=== PATIENT | male | born 1980 | race Caucasian/White ===

== ENCOUNTER 2017-02-22 09:06 | Emergency (ER) | payer OTHER, MEDICAID ==
[2017-02-22] MEDS ORDERED: Sodium Chloride 0.9% 1,000 ML IV ONE (09:39)
--- NOTE | 2017-02-22 09:51 | EDM.PDOC ---
[id number] 4d headache Time Seen by Provider: 02/22/17 09:17 - History of Present Illness INITIAL COMMENTS - FREE TEXT/NARRATIVE: HISTORY AND PHYSICAL: History of present illness: This is a 36-year-old male presenting to the emergency department for chief complaint of a headache and passing out. As per the patient, he tells me while he was at work yesterday he had an episode of passing out after experiencing a headache. He tells me that he hit the floor and hit his head. He tells me he'll he was helped up by his coworkers. He says since then he has been experiencing an ongoing headache. He denies any nausea, numbness or tingling, any chest pain or shortness of breath. He denies any history of headaches or migraines, denies any cardiopulmonary history. Review of systems: As per history of present illness and below otherwise all systems reviewed and negative. Past medical history: As per history of present illness and as reviewed below otherwise noncontributory. Surgical history: As per history of present illness and as reviewed below otherwise noncontributory. Social history: No reported history of drug or alcohol abuse. Family history: As per history of present illness and as reviewed below otherwise noncontributory. Physical exam: HEENT: Atraumatic, normocephalic, pupils reactive, negative for conjunctival pallor or scleral icterus, mucous membranes moist, throat clear, neck supple, nontender, trachea midline. Lungs: Clear to auscultation, breath sounds equal bilaterally, chest nontender. Heart: S1S2, regular, negative for clicks, rubs, or JVD. Abdomen: Soft, nondistended, nontender. Negative for masses or hepatosplenomegaly. Negative for costovertebral tenderness. Pelvis: Stable nontender. Genitourinary: Deferred. Rectal: Deferred. Extremities: Atraumatic, negative for cords or calf pain. Neurovascular unremarkable. Neuro: Awake, alert, oriented. Cranial nerves II through XII unremarkable. Cerebellum unremarkable. Motor and sensory unremarkable throughout. Exam nonfocal. Diagnostics: CBC CMP and PT/INR EKG chest x-ray CT scan of the head no contrast Therapeutics: IV normal saline bolus IV 10mg Compazine IV 25mg Benadryl IV 30mg Ketorolac Impression: Vasovagal Syncope Migraine headache Plan: Discharge home. Follow up with PCP. Headache Pain Score (Numeric/FACES): 10 - Related Data Allergies Allergy/AdvReac Type Severity Reaction Status Date / Time penicillin G Allergy Rash Verified 02/22/17 09:12 Home Meds: Home Meds Esomeprazole Magnesium [Nexium] 1 tab PO DAILY 02/22/17 [History] Ibuprofen [IMW: Ibuprofen] 1 tab PO DAILY 02/22/17 [History] Past Medical History - Past Health History Medical/Surgical History: Denies Medical/Surgical History Gastrointestinal History: Reports: GERD Musculoskeletal History: Reports: Osteoarthritis Other Musculoskeletal History: Knee Arthritis - Infectious Disease History Infectious Disease History: Reports: Chicken Pox - Past Surgical History GI Surgical History: Reports: Appendectomy Social & Family History - Family History Family Medical History: Noncontributory - Tobacco Use Smoking Status *Q: Current Every Day Smoker Years of Tobacco use: 6 Packs/Tins Daily: 2 Used Tobacco, but Quit: No Second Hand Smoke Exposure: Yes - Caffeine Use Caffeine Use: Reports: Soda - Recreational Drug Use Recreational Drug Use: No ED ROS GENERAL - Review of Systems Review Of Systems: See Below (See dictation) - Physical Exam Exam: See Below (See dictation) Course - Vital Signs Text/Narrative:: The patient presented with a chief complaint of syncope last night. A syncope workup was completed indicating no acute abnormalities with a CT scan of the head, EKG CBC CMP COMPLETED. Patient was given a migraine cocktail for his ongoing migraine which helped take the pain down. He was advised to follow-up with his primary care provider. He was advised to return to seek further medical attention if he was to experience any further episodes of passing out or any persistent headache. Patient agreed to the plan. Last Recorded V/S: Last Vital Signs Temp 36.2 C 02/22/17 09:14 Pulse 67 02/22/17 11:11 Resp 14 02/22/17 11:11 BP 124/57 L 02/22/17 11:11 Pulse Ox 96 02/22/17 11:11 - Orders/Labs/Meds Orders: Active Orders 24 hr Category Date Time Status EKG Documentation Completion [RC] STAT Care 02/22/17 09:38 Active Labs: Laboratory Tests 02/22/17 02/22/17 02/22/17 Range/Units 09:44 09:44 09:44 WBC 7.12 (4.0-11.0) K/uL RBC 4.76 (4.50-5.90) M/uL Hgb 15.1 (13.0-17.0) g/dL Hct 41.9 (38.0-50.0) % MCV 88.0 (80.0-98.0) fL MCH 31.7 (27.0-32.0) pg MCHC 36.0 (31.0-37.0) g/dL RDW Std Deviation 39.9 (28.0-62.0) fl RDW Coeff of [place] 13 (11.0-15.0) % Plt Count 273 (150-400) K/uL MPV 9.30 (7.40-12.00) fL Neut % (Auto) 54.6 (48.0-80.0) % Lymph % (Auto) 30.3 (16.0-40.0) % Johnston % (Auto) 10.3 (0.0-15.0) % Eos % (Auto) 4.5 (0.0-7.0) % Baso % (Auto) 0.3 (0.0-1.5) % Neut # (Auto) 3.9 (1.4-5.7) K/uL Lymph # (Auto) 2.2 (0.6-2.4) K/uL Johnston # (Auto) 0.7 (0.0-0.8) K/uL Eos # (Auto) 0.3 (0.0-0.7) K/uL Baso # (Auto) 0.0 (0.0-0.1) K/uL Nucleated RBC % 0.0 /100WBC Nucleated RBCs # 0 K/uL INR 0.98 (0.86-1.11) Sodium 140 (136-146) mmol/L Potassium 3.7 (3.5-5.1) mmol/L Chloride 107 (98-110) mmol/L Carbon Dioxide 24 (21-31) mmol/L BUN 10 (6.0-23.0) mg/dL Creatinine 0.8 (0.6-1.5) mg/dL Est Cr Clr Drug Dosing 128.88 mL/min Estimated GFR (MDRD) > 60.0 ml/min Glucose 98 (60-110) mg/dL Calcium 9.4 (8.8-10.8) mg/dL Total Bilirubin 0.9 (0.1-1.5) mg/dL AST 19 (5-40) IU/L ALT 33 (8-54) IU/L Alkaline Phosphatase 94 (40-150) Creatine Kinase (9-236) IU/L Troponin I (0.0-0.29) NG/ML Total Protein 7.6 (6.0-8.0) g/dL Albumin 4.2 (3.5-5.0) g/dL Globulin 3.4 (2.0-3.5) g/dL Albumin/Globulin Ratio 1.2 L (1.3-2.8) 02/22/17 02/22/17 Range/Units 09:44 09:49 WBC (4.0-11.0) K/uL RBC (4.50-5.90) M/uL Hgb (13.0-17.0) g/dL Hct (38.0-50.0) % MCV (80.0-98.0) fL MCH (27.0-32.0) pg MCHC (31.0-37.0) g/dL RDW Std Deviation (28.0-62.0) fl RDW Coeff of [place] (11.0-15.0) % Plt Count (150-400) K/uL MPV (7.40-12.00) fL Neut % (Auto) (48.0-80.0) % Lymph % (Auto) (16.0-40.0) % Johnston % (Auto) (0.0-15.0) % Eos % (Auto) (0.0-7.0) % Baso % (Auto) (0.0-1.5) % Neut # (Auto) (1.4-5.7) K/uL Lymph # (Auto) (0.6-2.4) K/uL Johnston # (Auto) (0.0-0.8) K/uL Eos # (Auto) (0.0-0.7) K/uL Baso # (Auto) (0.0-0.1) K/uL Nucleated RBC % /100WBC Nucleated RBCs # K/uL INR (0.86-1.11) Sodium (136-146) mmol/L Potassium (3.5-5.1) mmol/L Chloride (98-110) mmol/L Carbon Dioxide (21-31) mmol/L BUN (6.0-23.0) mg/dL Creatinine (0.6-1.5) mg/dL Est Cr Clr Drug Dosing mL/min Estimated GFR (MDRD) ml/min Glucose (60-110) mg/dL Calcium (8.8-10.8) mg/dL Total Bilirubin (0.1-1.5) mg/dL AST (5-40) IU/L ALT (8-54) IU/L Alkaline Phosphatase (40-150) Creatine Kinase 90 (9-236) IU/L Troponin I < 0.10 (0.0-0.29) NG/ML Total Protein (6.0-8.0) g/dL Albumin (3.5-5.0) g/dL Globulin (2.0-3.5) g/dL Albumin/Globulin Ratio (1.3-2.8) Meds: Medications Discontinued Medications Generic Name Dose Route Start Last Admin Trade Name Eliseoq PRN Reason Stop Dose Admin Diphenhydramine HCl 25 mg 02/22/17 10:08 02/22/17 10:22 Benadryl IVPUSH 02/22/17 10:09 25 mg ONETIME ONE Administration Sodium Chloride 1,000 mls @ 999 mls/hr 02/22/17 09:39 02/22/17 10:03 Normal Saline IV 02/22/17 10:39 999 mls/hr STAT ONE Administration Prochlorperazine Edisylate 10 52 mls @ 150 mls/hr 02/22/17 10:08 02/22/17 10: 28 mg/ Sodium Chloride IV 02/22/17 10:28 150 mls/hr ONETIME ONE Administration Ketorolac Tromethamine 30 mg 02/22/17 10:15 02/22/17 10:21 Toradol IVPUSH 02/22/17 10:16 30 mg ONETIME ONE Administration Departure - Departure Time of Disposition: 10:33 Disposition: Home, Self-Care 01 Condition: Good Clinical Impression: Vasovagal syncope - Discharge Information Instructions: Syncope, [id number] Referrals: PCP,None [Primary Care Provider] - Forms: ED Department Discharge Additional Instructions: My general discharge The following information is given to patients seen in the emergency department who are being discharged to home. This information is to outline your options for follow-up care. We provide all patients seen in our emergency department with a follow-up referral. The need for follow-up, as well as the timing and circumstances, are variable depending upon the specifics of your emergency department visit. If you don't have a primary care physician on staff, we will provide you with a referral. We always advise you to contact your personal physician following an emergency department visit to inform them of the circumstance of the visit and for follow-up with them and/or the need for any referrals to a consulting specialist. The emergency department will also refer you to a specialist when appropriate. This referral assures that you have the opportunity for follow-up care with a specialist. All of these measure are taken in an effort to provide you with optimal care, which includes your follow-up. Under all circumstances we always encourage you to contact your private physician who remains a resource for coordinating your care. When calling for follow-up care, please make the office aware that this follow-up is from your recent emergency room visit. If for any reason you are refused follow-up, please contact the [facility] Emergency Department at and asked to speak to the emergency department charge nurse. It appears that after your evaluation in the ER, your episode of passing out was likely due to vasovagal syncope as discussed. Please follow up with your primary care provider. Please return to seek further medical attention if you experience another episode of passing out, nausea, vomiting, shortness of breath. - My Orders Last 24 Hours: My Active Orders 02/22/17 09:38 EKG Documentation Completion [RC] STAT - Assessment/Plan Last 24 Hours: My Active Orders 02/22/17 09:38 EKG Documentation Completion [RC] STAT
[2017-02-22] MEDS ORDERED: Prochlorperazine 10 MG in Sodium Chloride 0.9% 50 ML IV ONE (10:08)
[2017-02-22] MEDS ORDERED: diphenhydrAMINE 50 MG/ML SDV IVPUSH ONE (10:08)
--- NOTE | 2017-02-22 10:12 | CR ---
EXAMINATION: Portable chest radiograph. HISTORY: Shortness of breath. FINDINGS: The trachea is midline. The cardiomediastinal silhouette is within normal limits. No pulmonary infil trates, effusions or pneumothorax. Osseous structures appear unremarkable. IMPRESSION: No acute cardiopulmonary process.
--- NOTE | 2017-02-22 10:14 | CT ---
EXAMINATION: Non contrast CT head. Coronal and sagittal reformats. HISTORY: Syncope FINDINGS: No evidence of intra or extra axial hemorrhage, mass, midline shift, hydrocephalus or edema. No hypoattenuation changes in the major vascular territories to suggest acute infarct. No abnormal intracranial calcifications are detected. No evidence of substantial vascular calcifica tions. There is a mucous retention cyst within the left maxillary sinus. The mastoid air cells are clear. Pituitary fossa appears unremarkable. The orbits and globes are symmetric. Calvarium is intact. No evidence of skull fracture. IMPRESSION: No acute intracranial findings.
[2017-02-22] MEDS ORDERED: Ketorolac 30 MG/ML SDV IVPUSH ONE (10:15)
[2017-02-22 10:31] LABS: CHLORIDE,CL 107 mmol/L (98-110); SODIUM,NA 140 mmol/L (136-146)
[2017-02-22 11:32] VITALS: BP 124/57
== END 2017-02-22 11:29 | disposition home or self-care (01) ==
LOC: MW.ED 09:06
DX: R55 Syncope and collapse (principal); G43.909 Migraine, unspecified, not intractable, without status migrainosus; F17.210 Nicotine dependence, cigarettes, uncomplicated; K21.9 Gastro-esophageal reflux disease without esophagitis; M17.9 Osteoarthritis of knee, unspecified; Z90.49 Acquired absence of other specified parts of digestive tract; Z79.1 Long term (current) use of non-steroidal anti-inflammatories (NSAID); Z79.899 Other long term (current) drug therapy; Z88.0 Allergy status to penicillin
CPT/HCPCS: 36415; 70450; 71010; 80053; 82550; 84484; 85025; 85610; 93005; 96361; 96365; 96375; 99285; J0780; J1200; J1885; J7040; J7050; 99283